=== PATIENT | male | born 1985 | race Caucasian/White ===

== ENCOUNTER 2018-03-17 11:16 | Emergency (ER) | payer BC, OTHER ==
[2018-03-17 11:36] VITALS: BP 133/74
--- NOTE | 2018-03-17 11:46 | UC ---
Eye Complaint HPI - HPI Summary HPI Summary: Started this AM w/ L eye crusting and mild itching, some swelling and eye redness. Was on a flight last night and thinks he got 'something' from there. denies eye injury. nothing makes it better/worse. denies any other symptoms. - History of Current Complaint Chief Complaint: UCEye Stated Complaint: eye irritatION Time Seen by Provider: 03/17/18 11:24 Hx Obtained From: Patient Onset/Duration: Sudden Onset Pain Intensity: 0 Aggravating Factor(s): Nothing Alleviating Factor(s): Nothing PMH/Surg Hx/FS Hx/Imm Hx Previously Healthy: Yes - Surgical History Surgical History: Yes Surgery Procedure, Year, and Place: appy, bi-lat eye surgeries - Family History Known Family History: Positive: Non-Contributory - Social History Occupation: Employed Full-time - senior embedded software engineer Alcohol Use: Weekly Substance Use Type: None Smoking Status (MU): Never Smoked Tobacco Review of Systems All Other Systems Reviewed And Are Negative: Yes Constitutional: Positive: Negative Skin: Positive: Negative Eyes: Positive: Drainage, Eye Redness. Negative: Blurred Vision, Photophobia ENT: Negative: Dental Pain, Sore Throat Respiratory: Positive: Negative Physical Exam Triage Information Reviewed: Yes Appearance: Well-Appearing Vital Signs: Initial Vital Signs Temp 98.9 F 03/17/18 11:25 Pulse 89 03/17/18 11:25 Resp 14 03/17/18 11:25 BP 133/74 03/17/18 11:25 Pulse Ox 100 03/17/18 11:25 Eyes: Positive: Conjunctiva Inflamed, Discharge - dried around eye, Other: - No pain w/ EO movement. No change in vision. No lid involvement. Dental Exam: Other - NO preauricular lymphadenopathy Eye Complaint Course/Dx - Course Course Of Treatment: Mild conjunctivitis, likely viral but given sudden onset will cover for bacterial source. No vision or lid involvement. vitals good. - Differential Dx/Diagnosis Differential Diagnosis/HQI/PQRI: Conjunctivitis, Corneal Abrasion, Periorbital Cellulitis Provider Diagnosis: Conjunctivitis Provider Diagnosis: (Ruled Out): Conjunctivitis due to Acanthamoeba Discharge - Sign-Out/Discharge Documenting (check all that apply): Patient Departure All imaging exams completed and their final reports reviewed: No Studies - Discharge Plan Condition: Good Disposition: HOME Prescriptions: Erythromycin OPTH OINT* [Erythromycin 0.5% OPTH OINT*] 1 applic LEFT EYE TID 5 Days #1 ophth.oint Patient Education Materials: Conjunctivitis (ED) Referrals: No Primary Care Phys,NOPCP [Primary Care Provider] - [facility] [Outside] Additional Instructions: Although this is likely viral I am treating it for a bacterial source to cover all causes. If it is not improving after 3-5 days please follow up with your pcp. - Billing Disposition and Condition Condition: GOOD Disposition: Home
== END 2018-03-17 12:08 | disposition home or self-care (01) ==
LOC: UCEAST 11:16
DX: H10.9 Unspecified conjunctivitis (principal)
CPT/HCPCS: 99202; G0463